=== PATIENT | female | born 1975 | race American Indian/Alaskan Native ===

== ENCOUNTER 2016-09-25 15:14 | Outpatient (CLI) | payer BC ==
--- NOTE | 2016-09-25 16:29 | Mammography Report ---
BILATERAL DIGITAL SCREENING MAMMOGRAM with CAD: 09/25/16 15:14:00 CLINICAL: Baseline screening. FINDINGS: The breasts are heterogeneously dense, which may obscure small masses. A right asymmetry on the CC view requires additional imaging. No architectural distortion or suspicious calcifications. The left breast is negative. IMPRESSION: Right asymmetry requiring additional imaging. BI-RADS CATEGORY: 0--Needs Additional Imaging RECOMMENDATION: Recall for right ML and spot magnification CC views and right breast ultrasound if needed.. COMMENT: Patient follow-up letters are generated by our [employer] application.
== END 2016-09-25 15:15 | disposition home or self-care (01) ==
LOC: SPVWC 15:14
PROVIDERS: ATTEND Obstetrics & Gynecology
DX: Z12.31 Encounter for screening mammogram for malignant neoplasm of breast (principal)
CPT/HCPCS: 77067; G0202

== ENCOUNTER 2016-10-22 08:28 | Outpatient (CLI) | payer BC ==
--- NOTE | 2016-10-22 09:19 | Mammography Report ---
RIGHT DIGITAL DIAGNOSTIC MAMMOGRAM : 10/22/16 08:28:00 CLINICAL: Recalled for asymmetry. COMPARISON:09/25/16 screening FINDINGS: ML and a spot magnification CC view were performed. Satisfactory effacement of the previously described asymmetry on the spot view. The lateral view is negative. IMPRESSION: Negative Mammogram. BI-RADS CATEGORY: 1 -- Negative RECOMMENDATION: Routine mammographic screening in one year. ACR BI-RADS MAMMOGRAPHIC CODES: 0 = Needs additional imaging evaluation; 1 = Negative; 2 = Benign; 3 = Probably benign; 4 = Suspicious; 5 = Malignant; 6 = Known biopsy-proven malignancy COMMENT: 1. Dense breast tissue, i.e., adenosis, fibrocystic changes, etc., may obscure an underlying neoplasm. 2. Approximately 10% of cancers are not detected with mammography. 3. A negative mammography report should not delay biopsy if a clinically suspicious mass is present. COMMENT: Patient follow-up letters are generated via our [employer] application.
== END 2016-10-22 08:29 | disposition home or self-care (01) ==
LOC: SPVWC 08:28
PROVIDERS: ATTEND Obstetrics & Gynecology
DX: R92.8 Other abnormal and inconclusive findings on diagnostic imaging of breast (principal)
CPT/HCPCS: G0206-RT

== ENCOUNTER 2020-03-27 08:03 | Outpatient (CLI) | payer BC ==
--- NOTE | 2020-03-27 15:17 | Mammography Report ---
DIGITAL SCREENING MAMMOGRAM WITH CAD, 03/27/2020 CLINICAL INFORMATION / INDICATION: Routine screening mammography. TECHNIQUE: Digital bilateral 2D mammography was obtained in the craniocaudal and mediolateral obliqu e projections. This examination was interpreted with the benefit of Computer-Aided Detection analysis . COMPARISON: Prior mammogram 09/25/2016 FINDINGS: Breast Density: The breasts are extremely dense, which lowers the sensitivity of mammography. No dominant mass, suspicious calcifications, or architectural distortion in either breast. There has been no significant change compared with the prior examination. IMPRESSION: No mammographic evidence of malignancy. Follow up recommendation: Routine yearly BI-RADS Category 1: Negative. A "normal" or negative report should not discourage follow up or biopsy of a clinically significant f inding. A written summary of these findings will be mailed to the patient. The patient will be entered into a mammography reporting system which will generate a reminder letter for the patient's next appointmen t at the appropriate interval. The [employer] recommends yearly mammograms starting at age 40 and continuing as l gurpreet as a woman is in good health. Breast MRI is recommended for women with an approximate 20-25% or greater lifetime risk of breast cancer, including women with a strong family history of breast or ova saumya cancer or who have been treated for Hodgkin's disease. Signer Name: Kirsten Cross MD Signed: 03/27/2020 3:13 PM Workstation Name: [employer]
== END 2020-03-27 08:04 | disposition home or self-care (01) ==
LOC: SPVWC 08:03
PROVIDERS: ATTEND Obstetrics & Gynecology
DX: Z12.31 Encounter for screening mammogram for malignant neoplasm of breast (principal); N64.89 Other specified disorders of breast
CPT/HCPCS: 77067